=== PATIENT | female | born 1975 | race Caucasian/White ===

== ENCOUNTER 2018-04-21 12:24 | Outpatient (CLI) | payer OTHER | END 2018-04-21 12:25 | disposition home or self-care (01) | LOC: BICMRI 12:24 | PROVIDERS: ATTEND Family Medicine | DX: M54.5 Low back pain (principal); G89.29 Other chronic pain; M47.897 Other spondylosis, lumbosacral region; M43.17 Spondylolisthesis, lumbosacral region; M99.83 Other biomechanical lesions of lumbar region | CPT/HCPCS: 72148 ==